=== PATIENT | female | born 1990 | race Caucasian/White ===

== ENCOUNTER 2021-06-12 11:58 | Emergency (ER) | payer SELFPAY ==
[2021-06-12 12:05] VITALS: BP 107/72; PULSE 103; RESP 18; TEMP 37.4; O2SAT 99
--- NOTE | 2021-06-12 12:15 | ED.GENADULT ---
HPI - General Adult General Chief complaint: Fever Stated complaint: FEVER/CHILLS Time Seen by Provider: 06/12/21 11:59 Source: patient Mode of arrival: ambulatory Limitations: no limitations History of Present Illness HPI narrative: 30-year-old female presents to [facility] requesting a work excuse. Patient reports that earlier this week she had vomiting, diarrhea and fever but her symptoms have since resolved and her employer is requesting a work excuse for her to return back to work. Patient denies current symptoms. Patient does work in the food industry. Patient denies cough, nose, nasal congestion, shortness of breath or wheezing. Patient has not received her Covid vaccine. Associated symptoms: denies other symptoms Treatments prior to arrival: none Related Data Home Medications Medication Instructions Recorded Confirmed No Home Medications 06/12/21 06/12/21 Allergies Allergy/AdvReac Type Severity Reaction Status Date / Time amoxicillin Allergy Unknown Verified 04/04/16 01:11 Penicillins Allergy Unknown Verified 03/11/14 14:51 Review of Systems Constitutional: Constitutional: Denies chills, Denies fatigue, Denies fever(s) and Denies weakness ENT: Denies dizziness, Denies nasal congestion and Denies sore throat Cardiovascular: Cardiovascular: Denies chest pain, Denies rapid heart rate and Denies slow heart rate Respiratory: Respiratory: Denies chest congestion, Denies cough and Denies wheezing Gastrointestinal: Gastrointestinal: Denies abdominal pain, Denies diarrhea, Denies nausea and Denies vomiting Integumentary/Breasts: Skin/Breast: Denies rash PMFSH Social History Social History (Updated 06/12/21 @ 12:20 by Nely Victoria, [employer]) Smoking status: Never smoker Substance use: current Substance use type: marijuana Gender identity (if verbalized by the patient): Female Comments At time of signature, I agree with nursing past medical, surgical, social and family history. There is no relevant family history pertinent to the presenting complaint. Exam Const: General: no acute distress Nutritional Appearance: well nourished Orientation/consciousness: patient oriented x3 HENMT: Head: normal to inspection Mouth: Yes lip normal Throat: uvula midline Neck: Neck: normal visual inspection Chest: Chest palpation & inspection: normal inspection of the chest Resp: Effort & Inspection: normal respiratory effort, not labored and not tachypneic Auscultation: clear to auscultation bilaterally Cardio: Rate: regular rate, not bradycardic and not tachycardic Rhythm: regular rhythm GI: Inspection: non-distended GI Palp: Yes Soft to palpation, No Tenderness to palpation present (GI), No Guarding due to palpation present (GI), No Rigid due to palpation and No Rebound tenderness present Auscultation: normal bowel sounds Back/Spine/Pelvis: Back: no CVA tenderness Neuro: General: patient oriented x3 and moves all extremities Speech: normal speech Psych: Appearance: grossly normal Mental Status: mental status grossly normal Affect: normal affect Attitude: cooperative Thought content: Yes Normal thought content present Course Vital Signs Vital signs: Vital Signs Temperature 37.4 C 06/12/21 12:05 Pulse Rate 103 H 06/12/21 12:05 Respiratory Rate 18 06/12/21 12:05 Blood Pressure 107/72 06/12/21 12:05 Pulse Oximetry 99 06/12/21 12:05 Temperature 37.4 C 06/12/21 12:05 Pulse Rate 103 H 06/12/21 12:05 Respiratory Rate 18 06/12/21 12:05 Blood Pressure 107/72 06/12/21 12:05 Pulse Oximetry 99 06/12/21 12:05 Medical Decision Making MDM Narrative Medical decision making narrative: Negative Covid results discussed with patient. Workers use provided for patient. Patient agrees to follow-up with primary care provider if symptoms would redevelop. Differential Diagnosis Differential Diagnosis: Viral illness, bacterial illness, Covid Vital Signs Vital Signs: Vital S
== END 2021-06-12 12:41 | disposition home or self-care (01) ==
PROVIDERS: Emergency Provider Nurse Practitioner Family
DX: R50.9 Fever, unspecified (principal); Z20.822 Contact with and (suspected) exposure to COVID-19
CPT/HCPCS: 87426; 99213; C9803; G0463